=== PATIENT | male | born 1955 | race Caucasian/White ===

== ENCOUNTER 2017-07-06 11:21 | Day surgery (SDC) | payer OTHER, BC ==
[~2017-07-06] VITALS: Ht 185.4 cm; Wt 86.4 kg
[~2017-07-06 11:21] MED LIST: ACID REDUCER150 M1 GT; ANCEF IV; ARTIFICIAL TEAR15 M8 EACH EYE; ATROPINE SL; B-1100 M1 GT; BACITRACIN28.4 G2 TOP; BANATROL PLUS1 EACH GT; CLARITIN10 M6 GT; COMPETE1 EACH GT; CULTURELLE1 EAC1 GT; FOLIC ACID1 M1 GT; GLUCOSE; LISINOPRIL40 M1 GT; LOPRESSOR50 M1 GT; LOVENOX30 MG/0.1 SC; MIRALAX119 G1 GT; NORVASC10 M2 GT; POTASSIUM40 MEQ/11 GT; SENNA8.6 M2 GT; SEROQUEL100 M2 GT; SODIUM CHLORIDE 0.9% IV; [UNRECOGNIZED DRUG - REMARK]
[2017-07-06] MEDS ORDERED: SEROQUEL25 M2 PO (12:01)
[2017-07-06 12:21] LABS: BASO % 0.2 % (0-2); EOS % 0.6 % (0-7); EOSINOPHIL ABSOLUTE COUNT 0.1 tho/cmm (0.0-0.7); HCT-HEMATOCRIT 31.8 % (36.0-53.5); HGB-HEMOGLOBIN 9.8 gm/dl (13.5-17.0); IMMATURE GRANULOCYTES ABSOLUTE 0.07 tho/cmm (0-0.03); IMMATURE GRANULOCYTES PERCENT 0.6 % (0-0.3); INR 1.2 INR (0.9-1.1); LYMPH % 10.2 % (20-45); LYMPH ABSOLUTE COUNT 1.3 tho/cmm (0.8-4.5); MCH (MEAN CORPUSCULAR HGB) 26.8 pg (28.0-32.0); MCHC MEAN CORPUSCULAR HGB CONC 30.8 % (32.0-36.0); MCV (MEAN CELL VOLUME) 87.1 fl (82.0-96.0); MEAN PLATELET VOLUME 9.1 cmc (9.4-12.4); MONO % 8.9 % (0-12); MONOCYTE ABSOLUTE COUNT 1.1 tho/cmm (0.0-1.2); NEUTROPHILS % 79.5 % (40-80); PLATELET COUNT 589 tho/cmm (150-450); PROTHROMBIN TIME 14.6 SECONDS (9.0-13.6); RED BLOOD COUNT 3.65 mil/cmm (4.40-5.70); RED CELL DISTRIBUTION WIDTH 15.8 % (12.4-16.4); WHITE BLOOD COUNT 12.5 tho/cmm (4.0-10.0)
[2017-07-06 12:28] LABS: ANION GAP 12 mmol/L (0-20); BLOOD UREA NITROGEN 9 mg/dl (6-24); CALCIUM 8.7 mg/dl (8.5-10.5); CARBON DIOXIDE-VENOUS 25 mmol/L (22-32); CHLORIDE 105 mmol/l (96-110); GLUCOSE 107 mg/dL (70-110); POTASSIUM 3.8 mmol/L (3.7-5.1); SODIUM 138 mmol/L (135-145); eGFR VALUE FOR BLACK >90 mL/Min
[2017-07-06 13:12] LABS: WBC MORPHOLOGY TOXIC GRANULATION
== END 2017-07-06 15:35 ==
LOC: SHSC 11:21 → RADSP 11:21
PROVIDERS: Radiology Diagnostic Radiology
PROC: 0D20XUZ Change Feeding Device in Upper Intestinal Tract, External Approach (ICD-10-PCS; principal; 2017-07-06)
DX: K94.23 Gastrostomy malfunction (principal); I10 Essential (primary) hypertension; M19.90 Unspecified osteoarthritis, unspecified site; Z79.899 Other long term (current) drug therapy; Z98.890 Other specified postprocedural states
CPT/HCPCS: C1769; J0690; J2250; J3010; J7030; Q9967